=== PATIENT | female | born 1980 | race Two or more races ===

== ENCOUNTER 2018-05-31 18:18 | Emergency (ER) | payer OTHER ==
[~2018-05-31] VITALS: Ht 157.5 cm; Wt 63.5 kg
[2018-05-31] MEDS ORDERED: LEVAQUIN500 MG (18:44)
== END 2018-05-31 19:13 | disposition home or self-care (01) ==
LOC: ER 18:18
DX: T78.1XXA Other adverse food reactions, not elsewhere classified, initial encounter (principal)

== ENCOUNTER 2020-12-28 06:30 | Day surgery (SDC) | payer OTHER ==
[~2020-12-28 06:30] MED LIST: LEVAQUIN500 MG
== END 2020-12-28 10:45 | disposition home or self-care (01) ==
LOC: AMB-ENDOS 06:30
PROVIDERS: ATTEND Surgery
DX: K62.89 Other specified diseases of anus and rectum (principal); K22.2 Esophageal obstruction; Z12.11 Encounter for screening for malignant neoplasm of colon

== ENCOUNTER 2021-03-26 08:00 | Outpatient (CLI) | payer OTHER | END 2021-03-26 08:30 | disposition home or self-care (01) | LOC: PPH VACUNA 08:00 | DX: Z23 Encounter for immunization (principal) ==

== ENCOUNTER 2021-04-20 11:20 | Outpatient (CLI) | payer OTHER | END 2021-04-20 11:25 | disposition home or self-care (01) | LOC: PPH VACUNA 11:20 | PROVIDERS: ATTEND Emergency Medicine Pediatric Emergency Medicine | DX: Z23 Encounter for immunization (principal) ==

== ENCOUNTER 2023-07-08 08:55 | Outpatient (CLI) | payer OTHER | END 2023-07-08 09:11 | disposition home or self-care (01) | LOC: RX STUDY 08:55 | PROVIDERS: ATTEND Internal Medicine Gastroenterology | DX: K22.2 Esophageal obstruction (principal); K20.0 Eosinophilic esophagitis; K21.9 Gastro-esophageal reflux disease without esophagitis ==